=== PATIENT | male | born 1970 | race Caucasian/White ===

== ENCOUNTER 2018-07-07 02:57 | Emergency (ER) ==
[2018-07-07 03:05] VITALS: BP 158/119; TEMP 98.1; BMI 28.5
--- NOTE | 2018-07-07 03:45 | CT ---
EXAM: CT abdomen pelvis without intravenous contrast 07/07/2018. Sagittal and coronal reformatted i mages obtained HISTORY: Abdominal pain COMPARISON: 09/17/2007 FINDINGS: The liver, gallbladder, adrenal glands and right kidney show no acute abnormality. 4 mm n onobstructive right-sided nephrolithiasis. Mild left hydroureteronephrosis. 2 mm diameter stone is present within the distal left ureter as seen on image 128. The spleen and pancreas show no acute abnormality. No bowel obstruction. Normal appendix. Unremark able urinary bladder. No free air or free fluid. IMPRESSION: 2 mm diameter stone within the distal left ureter causes mild left hydroureteronephrosis .
--- NOTE | 2018-07-07 03:56 | ED.PDOC ---
General ED Provider: Dr. VANESSA MCNEAL MD Chief Complaint: Kidney Stone Stated Complaint: left CVA pain Time Seen by Physician: 03:15 Mode of Arrival: Walk-In Information Source: Patient Exam Limitations: No limitations Primary Care Provider: NGUYEN FISHER Nursing and Triage Documentation Reviewed and Agree: Yes Does patient meet sepsis criteria?: No If yes, has appropriate treatment been initiated?: Yes System Inflammatory Response Syndrome: Not Applicable Sepsis Protocol: For patient's 13 years and over: Temp is 96.8 and below OR 101 and greater Pulse >90 BPM Resp >20/minute Acutely Altered Mental Status Are patient's symptoms suggestive of a new infection, such as: -Pneumonia -Skin, Soft Tissue -Endocarditis -UTI -Bone, Joint Infection -Implantable Device -Acute Abdominal Infection -Wound Infection -Meningitis -Blood Stream Catheter Infection -Unknown Review of Systems - Review Of Systems Constitutional: Reports: Other Eyes: Reports: No symptoms Ears, Nose, Mouth, Throat: Reports: No symptoms Respiratory: Reports: No symptoms Cardiac: Reports: No symptoms GI: Reports: Abdominal pain : Reports: Flank pain Musculoskeletal: Reports: No symptoms Skin: Reports: No symptoms Neurological: Reports: No symptoms Endocrine: Reports: No symptoms Hematologic/Lymphatic: Reports: No symptoms All Other Systems: Reviewed and Negative Past Medical History - Past Medical History Previously Healthy: Yes Endocrine: Reports: None Cardiovascular: Reports: None Respiratory: Reports: None Hematological: Reports: None Gastrointestinal: Reports: None Genitourinary: Reports: Kidney stones Neuro/Psych: Reports: None Musculoskeletal: Reports: None Cancer: Reports: None - Surgical History General Surgical History: Reports: None - Family History Family History: Reports: None - Social History Smoking Status: Former smoker Hx Substance Use: No Alcohol Screening: Occasionally - Immunizations Tetanus Shot up to Date: (UNKNOWN) Physical Exam - Physical Exam Appearance: Obese Ill-appearing: Mild Pain Distress: Moderate Eyes: VALENTIN, EOMI, Conjunctiva clear ENT: Ears normal Neck: Supple Respiratory: Airway patent, Breath sounds clear, Breath sounds equal, Respirations nonlabored Cardiovascular: RRR, Pulses normal, No rub, No murmur GI/: Tender (L CVA pain) Musculoskeletal: Normal strength, ROM intact, No edema, No calf tenderness Skin: Warm, Dry, Normal color Neurological: Sensation intact, Motor intact, Reflexes intact, Cranial nerves intact, Alert, Oriented Psychiatric: Affect appropriate, Mood appropriate Critical Care Note - Critical Care Note Total Time (mins): 0 Course - Course Orders, Labs, Meds: Lab Review 07/07/18 03:10 Urine Color Yellow Urine Clarity Clear Urine pH 6.0 Ur Specific [place] 1.010 Urine Protein Negative Urine Glucose (UA) Negative Urine Ketones Negative Urine Blood Negative Urine Nitrite Negative Urine Bilirubin Negative Urine Urobilinogen 0.2 Ur Leukocyte Esterase Negative Orders Category Date Time Status URINALYSIS C & S IF INDICATED Stat LAB 07/07/18 03:[address] ABDOMEN/PELVIS WO CONTRAST Stat RADS 07/07/18 03:10 Completed Vital Signs: Temp Pulse Resp BP Pulse Ox 07/07/18 02:57 98.1 F 73 20 158/119 H 96 Departure - Departure Time of Disposition: 04:00 Disposition: HOME SELF-CARE Discharge Problem: Nephrolithiasis Instructions: Kidney Stones (ED) Condition: Good Pt referred to PMD for follow-up: Yes IPMP verified?: No Prescriptions: Ketorolac Tromethamine [Toradol] 10 mg PO BID 5 Days #10 tablet NS Allergies/Adverse Reactions: Allergies No Known Drug Allergies Adverse Reaction (Verified 07/07/18 03:05) Home Medications: Ambulatory Orders Ketorolac Tromethamine [Toradol] 10 mg PO BID 5 Days #10 tablet NS 07/07/18 Lisinopril 10 mg PO DAILY 07/07/18 Propranolol HCl [Inderal] 20 mg PO BID 07/07/18 Transfer Form Completed: No Disposition Discussed With: Patient, Family
[2018-07-07] MEDS: TORADOL IM STA (04:05)
== END 2018-07-07 04:20 | disposition home or self-care (01) ==
LOC: ED 02:57
DX: N20.0 Calculus of kidney (principal); R10.9 Unspecified abdominal pain
CPT/HCPCS: 81001; 96372; 99283